=== PATIENT | male | born 1965 | race Caucasian/White ===

== ENCOUNTER 2021-11-05 19:44 | Emergency (ER) | payer OTHER, SELFPAY ==
[2021-11-05 19:49] VITALS: BP 154/80; PULSE 94; RESP 20; TEMP 36.2; O2SAT 96; BMI 32.5
--- NOTE | 2021-11-06 00:56 | ED_ITS ---
HPI - Eye Problem General Chief complaint: Eye Problems Stated complaint: rt eye irritation, possible FB Time Seen by Provider: 11/06/21 00:55 Source: patient Mode of arrival: Ambulatory History of Present Illness HPI Narrative: 55-year-old male nonsmoker with noncontributory medical history presents with his in the chief complaint of right eye irritation over the course of the day. He states that he was grinding metal without eye protection and feels like something flew into his right eye. He is got some watering but denies much in the way of pain or other symptoms. His tetanus will need to be updated. He does not wear contacts. He denies any headache, runny nose, sore throat or cough. He has no chest pain, shortness of breath. He denies any nausea, vomiting or diarrhea and has no abdominal pain. He is otherwise well and free of complaint Related Data Allergies Allergy/AdvReac Type Severity Reaction Status Date / Time No Known Drug Allergies Allergy Verified 11/06/21 01:28 Review of Systems Review of Systems Narrative: GENERAL: Denies chills, fatigue, malaise, fever, sweats. HEENT: See HPI RESPIRATORY: Denies dyspnea, cough, wheezing, hemoptysis, sputum. CARDIOVASCULAR: Denies chest pain, palpitations, orthopnea, edema, GASTROINTESTINAL: Denies nausea, vomiting, abdominal pain, diarrhea, constipation, melena. : Denies dysuria, frequency, incontinence, hematuria, urinary retention. MUSCULOSKELETAL: denies weakness, joint pain, or bony pain SKIN: Denies rash, skin lesions, or other NEUROLOGIC: Denies weakness, headache, numbness, change in speech, confusion, seizures, incoordination. PSYCHIATRIC: No concerning psychosocial issues. 12 point review of systems is negative except for those stated above Patient History Social History Smoking Status: Never smoker Smoking Status: Never smoker tobacco type: smokeless tobacco Substance Use Type: does not use Exam Narrative Exam Narrative: GEN: AOx3 and in mild distress EYES: Pupils are equal, round, and reactive to light and accommodation. Extraoccular muscles are intact bilaterally. There is no subconjunctival hemorrhage or exudate. Small metallic foreign body in the absence of rust ring noted at the 9 o'clock position of the right eye just lateral to the pupil. Pain completely resolved with proparacaine. Corneal abrasion noted when viewed with slit lamp using fluorescein. Foreign body initially largely removed with blunt needle but bur used for the remainder. In the end of very small laura remains and patient will be referred to Ophthalmology CHEST: Lungs are clear to auscultation bilaterally and free of wheezes, rales, or rhonchi. Heart rate is regular rhythm, there are no murmurs, clicks, rubs, or gallops. There is no chest wall tenderness. ABD: Abdomen is soft and nontender. There is no guarding or rebound. Bowel sounds are normal in all 4 quadrants. There is no mass or organomegaly. EXT: Full painless ROM of all extremities with no loss of sensation or strength. SKIN: Warm, pink, and dry. No erythema or rash Initial Vital Signs Initial Vital Signs: Vital Signs Temperature 97.1 F L 11/05/21 19:49 Pulse Rate 94 H 11/05/21 19:49 Respiratory Rate 20 11/05/21 19:49 Blood Pressure 154/80 H 11/05/21 19:49 Pulse Oximetry 96 11/05/21 19:49 Oxygen Delivery Method 11/05/21 19:49 Course Orders Ordered: Discontinued Medications Diphtheria/Tetanus/Acell Pertussis (Tet,Diph,Pertuss(Acell),Vac/Pf 0.5 Ml Syringe) 0.5 ml IM .ONCE ONE Stop: 11/06/21 01:13 Last Admin: 11/06/21 01:16 Dose: 0.5 ml Documented By: JC Fluorescein Sodium (Fluorescein 1 Mg Strip) 1 mg EYE-RIGHT NOW ONE Stop: 11/05/21 19:48 Last Admin: 11/06/21 01:08 Dose: 1 mg Documented By: JC Ofloxacin (Ofloxacin 0.3% Ophth 5 Ml) 1 drops EYE-RIGHT NOW ONE Stop: 11/06/21 01:13 Last Admin: 11/06/21 01:15 Dose: 1 drop Documented By: JC Proparacaine HCl (Proparacaine 0.5% Ophth Linda) 1 drops EYE-RIGHT NOW ONE Stop: 11/05/21 19:48 Last Admin: 11/06/21 01:07 Dose: 1 drop Documented By: JC Vital Signs Vital signs: Vital Signs - 8 hr 11/05/21 19:49 Temperature 97.1 F L Pulse Rate 94 H Respiratory Rate 20 Blood Pressure 154/80 H Pulse Oximetry 96 Oxygen Delivery Method Room Air MDM - Eye Problem MDM Narrative Medical decision making narrative: Patient with reassuring history and physical exam suggesting metallic foreign body in right eye. There is no evidence that it penetrated the globe, symptoms completely resolved with proparacaine. All but a very small laura of foreign body removed, corneal abrasion noted with use of fluorescein under slit lamp. Patient given antibiotics and diluted proparacaine. Patient instructed to follow-up with Ophthalmology later in the day and given return precautions. Questions answered to his apparent satisfaction Discharge Plan Departure Patient Disposition: Home Clinical Impression: Corneal abrasion, Foreign body in eye Instructions: DI for Corneal Abrasion Activity Restrictions/Additional Instructions: *You have been diagnosed with [right eye metallic foreign body and corneal abrasion. As we discussed there still a very small laura of metallic material in there that I was unable to get out] *What to do: *Please use the eyedrops listed below as directed [ x] Ofloxacin antibiotic drops: 1-2 drops in your right eye every 2- 4 hours while awake until symptoms improve [ x Proparacaine numbing drops have been diluted to 0.05%, you may use 1-2 drops in your right eye every 30-60 minutes for symptomatic relief *Please follow up with Dr. Bucio or Mike at our [facility]. Please call tomorrow and let them know that you were seen in the emergency department and we would like you seen in follow-up. I will electronically transmitted a copy of tonight note *Return to Emergency Department if you should have any new, worsening or concerning symptoms, such as [fever greater than 101 F, shaking chills, worsening pain, persistent vomiting or other bothersome symptoms] Referrals: Ольга Mckeon MD [Physician] - Carmen Epps PA-C [Primary Care Provider] - Visit Report Forms: Patient Portal/API
[2021-11-06] MEDS: PROPARACAINE 0.5% OPHTH SOL 1 DROPS EYE-RIGHT (01:07)
[2021-11-06] MEDS: FLUORESCEIN 1 MG STRIP EYE-RIGHT (01:08)
[2021-11-06] MEDS: OFLOXACIN 0.3% OPHTH 5 ML 1 DROPS EYE-RIGHT (01:15)
[2021-11-06] MEDS: TET,DIPH,PERTUSS(ACELL),VAC/PF 0.5 ML SYRINGE IM (01:16)
[2021-11-06 01:38] VITALS: BP 145/80; PULSE 90; RESP 18; O2SAT 97
== END 2021-11-06 02:14 | disposition home or self-care (01) ==
PROVIDERS: Emergency Provider Emergency Medicine; PCP Physician Assistant
DX: T15.01XA Foreign body in cornea, right eye, initial encounter (principal); Z23 Encounter for immunization
CPT/HCPCS: 90471; 99283; 90715